=== PATIENT | female | born 1970 | race Caucasian/White ===

== ENCOUNTER → 2016-09-27 | Outpatient (CLI) | payer OTHER ==
[~2016-09-27] MED LIST: ACETAMINOPHEN325 MG PO; ARIMIDEX1 MG PO; CLARITIN10 M3 PO; HYDROCODONE-A1 UDTA4 PO; MAGNESIUM400 MG PO; NAPROSYN500 MG PO; OMEPRAZOLE20 M1 PO; OXYCODONE-ACET1 EAC1 PO; PERCOCET 10/3251 TAB PO; PHENERGAN12.5 MG PR; PHENERGAN25 M1 PO; TRAMADOL HCL50 M2 PO; WELLBUTRIN PO; WELLBUTRIN SR150 MG PO; XANAX1 MG PO; XARELTO15 MG PO; ZANAFLEX4 M1 PO; ZIAGEN300 M1; ZOFRAN8 MG PO
[2016-09-27 11:25] LABS: BASOPHIL% 0.7 % (0-2.5); EOSINOPHIL# 0.6 X10e3 (0-0.7); EOSINOPHIL% 10.4 % (0.0-7.0); HEMOGLOBIN 12.6 gm/dL (12.0-16.0); LYMPHOCYTE# 1.5 X10e3 (1.0-3.5); LYMPHOCYTE% 24.5 % (17.0-45.0); MEAN CELL VOLUME 92.5 FL (83-96); MEAN CORPUSCULAR HEMOGLOBIN 30.6 PG (28-34); MEAN PLATELET VOLUME 7.3 FL (6.5-11.5); MONOCYTE# 0.5 X10e3 (0-1.0); MONOCYTE% 7.5 % (3.0-12.0); NEUTROPHIL# 3.5 X10e3 (1.5-7.1); NEUTROPHIL% 56.9 % (40-75); PLATELET COUNT 214 X10e3 (140-420); RED BLOOD COUNT 4.11 X10e (3.90-5.30); WHITE BLOOD COUNT 6.1 X10e3 (4.0-10.5)
[2016-09-27 11:26] LABS: DIFF IND NO
[2016-09-27 12:02] LABS: ALBUMIN SERUM 3.9 g/dL (3.5-5.0); ALKALINE PHOSPHATASE 88 U/L (32-92); ALT (SGPT) 36 U/L (10-40); AST (SGOT) 31 U/L (10-42); BILIRUBIN,TOTAL 0.3 mg/dL (0.2-2.0); BLOOD UREA NITROGEN 12 mg/dL (9-23); BUN/CREATININE RATIO 17.14; CALCIUM SERUM 8.8 mg/dL (8.4-10.2); CARBON DIOXIDE 30 mmol/L (22-31); CHLORIDE 104 mmol/L (100-111); CREATININE SERUM 0.7 mg/dL (0.6-1.4); GLOM FILT RATE Estimated ABOVE60 mL/min (>60); GLUCOSE FASTING 116 mg/dL (70-110); POTASSIUM 4.3 mmol/L (3.5-5.1); PROTEIN TOTAL SERUM 6.7 g/dL (6.0-8.3); SODIUM 140 mmol/L (135-145)
== END | disposition home or self-care (01) ==
LOC: CLAB 10:41
PROVIDERS: Internal Medicine Hematology
DX: C50.012 Malignant neoplasm of nipple and areola, left female breast (principal)
CPT/HCPCS: 36415; 80053; 85025

== ENCOUNTER → 2016-10-06 | Outpatient (CLI) | payer OTHER ==
--- NOTE | ~2016-10-06 | MU ---
Unit #: [id number] #: [id number] Patient: CHIP CARROLL [id number] [address] [address] [id number] O MR#: [id number] NAME: CHIP CARROLL. : 1970 SEX: F STUDY DATE/TIME: 10/06/2016 UNIT: CN ROOM: STUDY DESCRIPTION: MUGA scan Attending Physician: Hemant Javier M.D. Referring Physician: Hemant Javier M.D. Primary Care Physician: Brandy Brooks M.D. CARDIOLOGY REPORT EXAM MUGA scan INDICATION Chemotherapy. DESCRIPTION OF PROCEDURE The patient received ehmqchyfrt-bboatxgsufeeu-jzqoqvd red blood cells, labeled in vitro, 29.2 mCi. Appropriate views were obtained in the anterior, left anterior oblique and lateral positions. FINDINGS Separation is adequate. The flow-volume loop is excellent. Ejection fraction is 57%, with appropriate mild hypokinesis noted of the septum, and apex, normal. No abnormalities on the lateral, and anterior views. IMPRESSION Normal ejection fraction prechemotherapy. Dictated by... Kushal Chaudhary/cody TD: 10/08/2016 17:03 JOB #: [id number] CARDIOLOGY REPORT X Austin Goodwin MD CARDIOLOGY REPORT
== END | disposition home or self-care (01) ==
LOC: CNUC 12:43
DX: C50.012 Malignant neoplasm of nipple and areola, left female breast (principal); R11.2 Nausea with vomiting, unspecified
CPT/HCPCS: 78472; A9560

== ENCOUNTER → 2016-10-23 | Outpatient (CLI) | payer OTHER ==
--- NOTE | ~2016-10-23 | CT55 ---
[facility] A Service of [facility] RADIOLOGY TEXT RESULTS PATIENT: CHIP CARROLL LOCATION: [facility] : 70 UNIT #: [id number] AGE: [address]: Hemant Javier MD SEX: F ORDER DR: [id number] [facility] [address] [facility]. [place], [place] [address] [id number] O MR#: [id number] Acc #: [id number] NAME: CHIP CARROLL : 1970 SEX: F STUDY DATE/TIME: 10/23/2016 11:01 UNIT: CCA ROOM: STUDY DESCRIPTION: CT Chest W Con Attending Physician: Hemant Javier M.D. Referring Physician: Hemant Javier M.D. Ordering Physician: Hemant Javier M.D. Primary Care Physician: Brandy Brooks M.D. MEDICAL IMAGING REPORT This report is preliminary unless electronic signature is present EXAM CT chest with contrast 10/23/2016 INDICATIONS Restaging breast cancer. Observation for metastatic disease. PROCEDURE Contrast-enhanced CT of the chest 100 mL of Isovue-370. This CT exam was performed with one or more of the following radiation dose reduction techniques: automatic exposure control, adjustment of mA and/or kV according to patient size, and iterative reconstruction. COMPARISON 09/08/2015 FINDINGS No suspicious pulmonary nodule. No pleural fluid or pneumothorax. No adenopathy. Previous bilateral mastectomy. No aggressive appearing bone lesion. IMPRESSION 1. No convincing evidence for metastatic disease to the chest. 2. Previous bilateral mastectomy and left axillary dissection. Dictated by... Baljit Yeboah M.D. THIS IS AN ELECTRONICALLY VERIFIED REPORT Baljit Yeboah M.D. at 10/24/2016 7:34 AM Beny TD: 10/23/2016 15:59 [facility] A Service [facility] RADIOLOGY TEXT RESULTS PATIENT: CHIP CARROLL LOCATION: [facility] : 70 UNIT #: [id number] AGE: [address]: Hemant Javier MD SEX: F ORDER DR: JOB #: [id number] MEDICAL IMAGING REPORT Page 1 of 1 COPY
--- NOTE | ~2016-10-23 | CT2 ---
[facility] RADIOLOGY TEXT RESULTS PATIENT: CHIP CARROLL [facility] 70 UNIT #: [id number] AGE: [address]: Hemant Javier MD SEX: F ORDER DR: [id number] [facility] [address] [place], [place] [address] [id number] O MR#: [id number] Acc #: [id number] NAME: CHIP CARROLL. : 1970 SEX: F STUDY DATE/TIME: 10/23/2016 11:01 UNIT: [facility] ROOM: STUDY DESCRIPTION: CT Abd and Pelv W Cont Attending Physician: Hemant Javier M.D. Referring Physician: Hemant Javier M.D. Ordering Physician: Hemant Javier M.D. Primary Care Physician: Brandy Brooks M.D. MEDICAL IMAGING REPORT This report is preliminary unless electronic signature is present EXAM CT abdomen and pelvis, with contrast. HISTORY Restaging breast cancer. Observation for metastatic disease. Patient reports mid chest pain radiating to the back since surgery on 08/31/2015. Patient has a history of previous bilateral mastectomies. TECHNIQUE Contrast-enhanced CT of the abdomen and pelvis. 100 mL of Isovue-370. This CT exam was performed with one or more of the following radiation dose reduction techniques: automatic exposure control, adjustment of mA and/or kV according to patient size, and iterative reconstruction. COMPARISON 09/08/2015 FINDINGS Refer to the separately dictated chest CT for thoracic findings. Liver enlarged, measuring 22.1 cm. Hepatic steatosis. No liver or splenic mass. The kidneys, adrenal glands, and pancreas are unremarkable. Previous cholecystectomy. There is pneumobilia similar to the previous study. Duodenal diverticula are again seen. The bowel loops are nondilated. The appendix is normal. PELVIS WITH CONTRAST: 5.5-cm fibroid in the uterus is similar. No new pelvic mass, adenopathy, or fluid. No aggressive-appearing bone lesion. IMPRESSION 1. No convincing evidence for metastatic disease in the abdomen or pelvis. [facility] A Service of [facility] RADIOLOGY TEXT RESULTS PATIENT: CHIP CARROLL LOCATION: [facility] : 70 UNIT #: [id number] AGE: [address]: Hemant Javier MD SEX: F ORDER DR: 2. Hepatomegaly with steatosis. 3. Dominant fibroid in the uterus is similar to the prior. Dictated by... Baljit Yeboah M.D. THIS IS AN ELECTRONICALLY VERIFIED REPORT Baljit Yeboah M.D. at 10/24/2016 7:35 AM Melba TD: 10/23/2016 15:53 JOB #: [id number] MEDICAL IMAGING REPORT Page 1 of 1 COPY
== END | disposition home or self-care (01) ==
LOC: CCAT 10:27
DX: C50.012 Malignant neoplasm of nipple and areola, left female breast (principal); R11.2 Nausea with vomiting, unspecified; K76.0 Fatty (change of) liver, not elsewhere classified; D25.9 Leiomyoma of uterus, unspecified; Z90.13 Acquired absence of bilateral breasts and nipples
CPT/HCPCS: 71260; 74177; Q9967

== ENCOUNTER → 2017-01-09 | Outpatient (CLI) | payer OTHER ==
[2017-01-09 13:20] LABS: ALBUMIN SERUM 3.9 g/dL (3.5-5.0); BILIRUBIN,TOTAL 0.2 mg/dL (0.2-2.0); CALCIUM SERUM 8.8 mg/dL (8.4-10.2); CREATININE SERUM 0.6 mg/dL (0.6-1.4); GLOM FILT RATE Estimated 109.3 mL/min (>60); POTASSIUM 3.7 mmol/L (3.5-5.1); PROTEIN TOTAL SERUM 7.1 g/dL (6.0-8.3)
[2017-01-09 15:17] LABS: HEMATOCRIT 36.8 % (35.0-45.0); HEMOGLOBIN 12.3 gm/dL (12.0-16.0); MEAN CELL VOLUME 91.5 FL (83-96); MEAN CORPUSCULAR HEMOGLOBIN 30.6 PG (28-34); MEAN CORPUSCULAR HGB CONC 33.4 g/dL (30-36); MEAN PLATELET VOLUME 8.1 FL (6.5-11.5); RED BLOOD COUNT 4.02 X10e (3.90-5.30); RED CELL DISTRIBUTION WIDTH 13.8 % (11.0-15.5); WHITE BLOOD COUNT 5.8 X10e3 (4.0-10.5)
== END | disposition home or self-care (01) ==
LOC: CLAB 11:19
PROVIDERS: Internal Medicine Hematology
DX: D64.9 Anemia, unspecified (principal); C50.919 Malignant neoplasm of unspecified site of unspecified female breast
CPT/HCPCS: 36415; 80053; 82728; 83540; 83550; 85027

== ENCOUNTER 2017-02-16 14:25 | Observation (INO) | payer OTHER ==
[~2017-02-16] VITALS: Ht 162.6 cm; Wt 107.6 kg
--- NOTE | ~2017-02-16 | US140 ---
[facility] A Service of [facility] RADIOLOGY TEXT RESULTS PATIENT: CHIP CARROLL LOCATION: [facility] 320-01 : 70 UNIT #: [id number] AGE: [address]: Zachariah Johnson MD SEX: F ORDER DR: [id number] [facility] [address] [place], [place] [address] [id number] I MR#: [id number] Acc #: [id number] NAME: CHIP CARROLL : 1970 SEX: F STUDY DATE/TIME: 02/16/2017 14:45 UNIT: [address] ROOM: [facility] STUDY DESCRIPTION: US UE Veins Unilat or Ltd Stdy Attending Physician: Zachariah Johnson M.D. Referring Physician: Zachariah Johnson M.D. Ordering Physician: Zachariah Johnson M.D. Primary Care Physician: Brandy Brooks M.D. MEDICAL IMAGING REPORT This report is preliminary unless electronic signature is present EXAM US UE VEINS UNILAT OR LTD STDY HISTORY Right axillary lump and pain. Pain in right axilla with palpable abnormality. Patient had left axillary lymph nodes removed 08/31/2016. FINDINGS Venous system is evaluated in the right upper extremity. There is flow and compression where appropriate in internal jugular vein and subclavian vein and brachial vein, cephalic vein and basilic veins. There is occlusive thrombus in the axillary vein. IMPRESSION Study is positive deep venous thrombosis in the right axillary vein. I have discussed the findings with Dr. Johnson over the phone. Dictated by... Marcus Thomson M.D. THIS IS AN ELECTRONICALLY VERIFIED REPORT Marcus Thomson M.D. at 02/24/2017 6:03 AM WALDO/katey TD: 02/16/2017 21:01 JOB #: [id number] MEDICAL IMAGING REPORT Page 1 of 1 COPY
--- NOTE | ~2017-02-16 | EKG ---
PATIENT: CHIP CARROLL UNIT #: [id number] Ventricular Rate: 89 BPM Atrial Rate: 89 BPM P-R Interval: 134 ms QRS Duration: 82 ms Q-T Interval: 376 ms QTC Calculation(Bezet): 457 ms P Lecompte: 10 degrees Calculated T Lecompte: 38 degrees Diagnosis Line: Normal sinus rhythm Diagnosis Line: Voltage criteria for left ventricular hypertrophy Diagnosis Line: Abnormal ECG Diagnosis Line: When compared with ECG of 21-NOV-2015 05:13, Diagnosis Line: No significant change was found Diagnosis Line: Confirmed by ALICIA CHAPIN MD ([id number]) on Diagnosis Line: 02/18/2017 11:14:44 PM INTERPRETING MD: TAVARES PETE
--- NOTE | ~2017-02-16 | CO ---
Unit #: [id number] #: [id number] Patient: CHIP CARROLL [id number] [address] [place], [place] [address] [id number] I MR#: [id number] NAME: CHIP CARROLL ROOM: 320 Age: 46 Sex: F Admission Date: 02/16/2017 : 1970 Attending Physician: Zachariah Johnson M.D. Primary Care Physician: Brandy Brooks M.D. Requesting Physician: Zachariah Johnson M.D. Consultation Date: 02/17/2017 CONSULTATION REPORT REASON FOR CONSULTATION DVT right upper extremity. HISTORY OF PRESENT ILLNESS This 46-year-old lady who has a history of 3C breast cancer, status post chemo, surgery and currently on tamoxifen, went to Dr. Trina Javier with complaint of a lump being felt in the tamez. Subsequently went and saw Dr. Zachariah Johnson who sent her for a Doppler and the Doppler showed evidence of axillary vein thrombosis, age unknown. Patient is otherwise asymptomatic. No swelling in the arms. No swelling in the neck. Chest wall discomfort, right thigh area discomfort and extreme worry that she may have clots. PAST MEDICAL HISTORY Mainly significant for breast CA, left-sided. It was a stage 3C disease and then prophylactic right-sided mastectomy. Otherwise history of hypertension, fibromyalgia, and chronic fibroid. FAMILY HISTORY Positive for a sister and paternal grandmother with ovarian cancer. SOCIAL HISTORY Nonsmoker. No alcohol usage. No drug usage. CHRONIC MEDICATIONS Prilosec, Phenergan, Xanax, Wellbutrin, Tylenol, and tamoxifen. ALLERGIES Cipro, Compazine, Bentyl, trazodone. REVIEW OF SYSTEMS Some anxiety and right-sided axillary area mild tenderness. No swelling in the arms. Otherwise six or eight systems were within normal limits on exam. I could appreciate the cord like area in his right axilla. Left arm is normal to exam. There is no palpable JVD or area of clotting. LUNGS: Clear. ABDOMEN: No organomegaly. MEDICAL SCIENTIFIC LIAISON: Grossly intact. PELVIC/BREASTS: Pelvic exam was not performed. DIAGNOSTIC STUDIES IMAGING STUDIES: CT scan of the chest was reviewed and discussed with the patient. There is no evidence of metastatic disease and ultrasound final report is still not on the chart but the preliminary showed that axillary Unit #: [id number] #: [id number] Patient: CHIP CARROLL clot. IMPRESSION This is a 46-year-old lady with a history of 3C breast cancer, status post surgery, chemotherapy, currently on tamoxifen. Started having discomfort in the right axilla and she has a clot there of undetermined age. Otherwise she is asymptomatic, currently on heparin. So at this point I discussed with her the benefits, risks, side effects of Xarelto and will start her on Xarelto 15 mg p.o. b.i.d. for 21 days, followed by 20 mg with supper, minimum of three months and I have sent all of this to Dr. Trina Javier for further followup. Dictated by... Kushal Morrow/sudheer TD: 02/17/2017 12:00 JOB #: [id number] CONSULTATION REPORT Page 1 of 1 X Jose Han MD X CONSULTATION REPORT
--- NOTE | ~2017-02-16 | CT55 ---
[facility] A Service of [facility] RADIOLOGY TEXT RESULTS PATIENT: CHIP CARROLL LOCATION: [facility] 320-01 : [birth year] UNIT #: [id number] AGE: [address]: Zachariah Johnson MD SEX: F ORDER DR: [id number] [facility] [address] [place], [place] [address] [id number] I MR#: [id number] Acc #: [id number] NAME: CHIP CARROLL : 1970 SEX: F STUDY DATE/TIME: 02/16/2017 20:26 UNIT: A U ROOM: 320 STUDY DESCRIPTION: CT Chest W Con Attending Physician: Zachariah Johnson M.D. Referring Physician: Zachariah Johnson M.D. Ordering Physician: Zachariah Johnson M.D. Primary Care Physician: Brandy Brooks M.D. MEDICAL IMAGING REPORT This report is preliminary unless electronic signature is present EXAM Chest CT 02/16 at 2026 hours INDICATIONS Sternal pain and left upper chest pain since last year. Right upper arm blood clot noted today. History of breast cancer status post bilateral mastectomy 2015. TECHNIQUE Axial images were obtained through the chest following IV contrast administration. Multiplanar reformats were obtained. Comparison made with 10/23/2016. This CT exam was performed with one or more of the following radiation dose reduction techniques: automatic control, adjustment of mA and/or kV according to patient size, and iterative reconstruction. FINDINGS Patient is status post bilateral mastectomy with a left axillary node dissection. No pleural or pericardial effusion is seen. There is no adenopathy. Lungs remain clear. No pneumothorax is seen. There are no pulmonary nodules. No suspicious osseous lesions. Upper abdomen demonstrates hepatic steatosis. There is pneumobilia again seen suggesting prior sphincterotomy. This is unchanged. Gallbladder has been removed. IMPRESSION No active disease in the chest. No evidence of metastatic disease. Patient is status post bilateral mastectomy. Dictated by... Zachariah Jarrett Jr., M.D. THIS IS AN ELECTRONICALLY VERIFIED REPORT [facility] A Service of [facility] RADIOLOGY TEXT RESULTS PATIENT: CHIP CARROLL LOCATION: [facility] 320-01 : [birth year] UNIT #: [id number] AGE: [address]: Zachariah Johnson MD SEX: F ORDER DR: Zachariah Jarrett Jr., M.D. at 02/17/2017 5:52 AM CHARLOTTE/ayaka TD: 02/17/2017 04:16 JOB #: [id number] MEDICAL IMAGING REPORT Page 1 of 1 COPY
--- NOTE | ~2017-02-16 | DS ---
Unit #: [id number] #: [id number] Patient: CHIP CARROLL [id number] [address] [place], [place] [address] [id number] I MR#: [id number] NAME: CHIP CARROLL ROOM: 320 Age: 46 Sex: F Admission Date: 02/16/2017 : 1970 Discharge Date: 02/17/2017 Attending Physician: Zachariah Johnson M.D. Referring Physician: Zachariah Johnson M.D. Primary Care Physician: Brandy Brooks M.D. DISCHARGE SUMMARY SHORT STAY SUMMARY HOSPITAL COURSE This 46-year-old patient was admitted to the hospital with right upper extremity DVT. The patient is feeling much better and will be seen by Dr. Han today. Her right upper extremity ultrasound was positive for DVT in right axillary vein. She also had a CT scan of the chest done, which did not reveal any active disease in the chest. There was no evidence of metastatic disease. Her troponin was less than 0.3. The patient is feeling much better and wants to go home. Therefore, she will be discharged after seen by Dr. Han on the treatment of his choice. RECOMMENDATIONS ON DISCHARGE 1. Discharge the patient home after seen and if okay with Dr. Han. 2. Medications: The patient is advised to continue home medications, which are as per medication reconciliation form and admission H and P. 3. The patient's additional medication for right upper extremity DVT will be as per Dr. Han. 4. Followup: The patient is advised to follow up with primary care physician in [address] Han as recommended. Dictated by... Kushal Hannon/audrey TD: 02/17/2017 11:46 JOB #: [id number] DISCHARGE SUMMARY Page 1 of 1 X Skip Mccall MD DISCHARGE SUMMARY
--- NOTE | ~2017-02-16 | HP ---
Unit #: [id number] #: [id number] Patient: CHIP CARROLL [id number] [facility] [address]. [place], [place] [address] [id number] Elle MR#: [id number] NAME: CHIP CARROLL. ROOM: 320 Age: 46 Sex: F Admission Date: 02/16/2017 : 1970 Attending Physician: Zachariah Johnson M.D. Referring Physician: Zachariah Johnson M.D. Primary Care Physician: Brandy Brooks M.D. HISTORY AND PHYSICAL CHIEF COMPLAINT Right upper extremity DVT. HISTORY OF PRESENT ILLNESS The patient is a 46-year-old female with past medical history of breast cancer, hypertension, fibromyalgia, who is being admitted from Ultrasound for the above. The patient states that she felt a "knot" in the right axillary area as well as the left axillary area about a month ago. She saw Dr. Johnson who had done her bilateral mastectomy and left axillary dissections. She actually saw him in his office on February 14, 2017. An ultrasound of the right axilla was ordered. I was called from Ultrasound due to deep venous thrombosis in the right axillary vein. She is being admitted to [facility] for evaluation and further treatment. The patient states that she has had chest wall pain since surgery. She denies shortness of breath and she has had nausea. She denies any vomiting. No diarrhea. No urinary symptoms. PAST MEDICAL HISTORY 1. Admission to [facility] November 19-2015 for intractable nausea, vomiting and diarrhea. 2. Breast cancer, invasive ductal carcinoma, status post mastectomy and lymph node dissection. The patient apparently had a prophylactic mastectomy of the right breast. She is followed by Dr. Javier. Her last chemotherapy was in March of 2016. Last radiation treatment was in May of 2016. She has been on Herceptin and tamoxifen and is currently receiving Arimidex. She is followed by Dr. Javier. 3. Fibromyalgia. 4. Hypertension. PAST SURGICAL HISTORY 1. Bilateral mastectomy. 2. Left axillary dissection. 3. Port placement. 4. Cholecystectomy. 5. Tonsillectomy. SOCIAL HISTORY The patient has a caregiver. She walks with a cane. There is no tobacco or alcohol use. FAMILY HISTORY Unit #: [id number] #: [id number] Patient: CHIP CARROLL Family history is notable for her sister and paternal grandmother having ovarian cancer. ALLERGIES Trazodone, ciprofloxacin, Compazine, Bentyl. HOME MEDICATIONS Per the discharge summary from October of 2015 include Xanax, Phenergan, Wellbutrin, Tylenol, Percocet, Prilosec. Home medications will need to be reviewed and verified. REVIEW OF SYSTEMS A complete review of systems is negative except as indicated in the HPI. DIAGNOSTIC STUDIES IMAGING: Ultrasound of the right axilla was positive for a right axillary vein thrombosis. No other labs have been done. PHYSICAL EXAMINATION VITAL SIGNS: Pending. GENERAL: The patient is a very pleasant female who is awake and alert, in no acute distress. HEENT: The head is atraumatic. Mucous membranes are moist. NECK: Neck is supple. Trachea is midline. CARDIOVASCULAR: Regular rate and rhythm. LUNGS: Lungs are clear to auscultation bilaterally with no increased work of breathing. ABDOMEN: Abdomen is soft, nontender, with bowel sounds present in all four quadrants. EXTREMITIES: Nontender, with no pedal edema. NEUROLOGIC: The patient is awake and alert. She follows commands. PSYCHIATRIC: Mood and affect are normal. The patient is cooperative. SKIN: Skin of examined areas is warm and dry. The patient has had bilateral mastectomy with well-healed surgical scars. ASSESSMENT The patient is 46-year-old female with: 1. Right upper extremity deep vein thrombosis. 2. Breast cancer, status post mastectomy, left axillary dissection, radiation and chemotherapy, followed by Dr. Javier. 3. Hypertension. 4. Fibromyalgia. PLAN 1. Admit for observation to intermediate level. 2. Healthy heart diet. 3. Consult Dr. Han regarding DVT. I have spoken with him regarding this patient. He agrees to see her in consultation. 4. High intensity heparin drip with initial bolus and bolus as indicated per protocol for DVT. 5. CT of the chest with IV contrast for further evaluation of right upper extremity DVT. 6. STAT labs including CBC, comprehensive metabolic panel, INR. 7. EKG and cardiac enzymes now. 8. Repeat labs in the morning. 9. Additional workup and consultants based on above. Unit #: [id number] #: [id number] Patient: CHIP CARROLL Dictated by Kushal Leonard/cody TD: 02/16/2017 18:18 JOB #: [id number] HISTORY AND PHYSICAL Page 1 of 1 X Estrellita Boone MD HISTORY AND PHYSICAL
[~2017-02-16 14:25] MED LIST changes: -ARIMIDEX1 MG PO; -CLARITIN10 M3 PO; -OXYCODONE-ACET1 EAC1 PO; -WELLBUTRIN SR150 MG PO; -XARELTO15 MG PO; -ZOFRAN8 MG PO
[2017-02-16] MEDS ORDERED: WELLBUTRIN SR150 MG PO (18:46)
[2017-02-16] MEDS ORDERED: OXYCODONE-ACET1 EAC1 PO (18:47)
[2017-02-16] MEDS ORDERED: ZOFRAN8 MG PO (18:47)
[2017-02-16] MEDS ORDERED: CLARITIN10 M3 PO (18:48)
[2017-02-16] MEDS ORDERED: ARIMIDEX1 MG PO (18:48)
[2017-02-16 18:55] LABS: HEMATOCRIT 40.3 % (35.0-45.0); HEMOGLOBIN 13.4 gm/dL (12.0-16.0); MEAN CELL VOLUME 92.3 FL (83-96); MEAN CORPUSCULAR HEMOGLOBIN 30.7 PG (28-34); MEAN CORPUSCULAR HGB CONC 33.2 g/dL (30-36); MEAN PLATELET VOLUME 7.5 FL (6.5-11.5); RED BLOOD COUNT 4.37 X10e (3.90-5.30); RED CELL DISTRIBUTION WIDTH 13.6 % (11.0-15.5); WHITE BLOOD COUNT 8.9 X10e3 (4.0-10.5)
[2017-02-16 19:23] LABS: PROTHROMBIN TIME (PATIENT) 10.4 SECONDS (10.0-11.7)
[2017-02-16 19:28] LABS: ALBUMIN SERUM 3.9 g/dL (3.5-5.0); BILIRUBIN,TOTAL 0.1 mg/dL (0.2-2.0); BUN/CREATININE RATIO 12.5; CALCIUM SERUM 8.7 mg/dL (8.4-10.2); CREATININE SERUM 0.8 mg/dL (0.6-1.4); GLOM FILT RATE Estimated 88.5 mL/min (>60); POTASSIUM 3.7 mmol/L (3.5-5.1); PROTEIN TOTAL SERUM 7.2 g/dL (6.0-8.3)
[2017-02-17 01:55] LABS: CK TOTAL 21 IU/L (26-140)
[2017-02-17 02:04] LABS: HEMATOCRIT 38.6 % (35.0-45.0); HEMOGLOBIN 12.8 gm/dL (12.0-16.0); MEAN CELL VOLUME 91.5 FL (83-96); MEAN CORPUSCULAR HEMOGLOBIN 30.4 PG (28-34); MEAN CORPUSCULAR HGB CONC 33.3 g/dL (30-36); MEAN PLATELET VOLUME 7.7 FL (6.5-11.5); RED BLOOD COUNT 4.21 X10e (3.90-5.30); RED CELL DISTRIBUTION WIDTH 13.7 % (11.0-15.5); WHITE BLOOD COUNT 9.7 X10e3 (4.0-10.5)
[2017-02-17 02:22] LABS: ALBUMIN SERUM 3.9 g/dL (3.5-5.0); BILIRUBIN,TOTAL 0.1 mg/dL (0.2-2.0); BUN/CREATININE RATIO 12.5; CALCIUM SERUM 8.7 mg/dL (8.4-10.2); CREATININE SERUM 0.8 mg/dL (0.6-1.4); GLOM FILT RATE Estimated 88.5 mL/min (>60); PROTEIN TOTAL SERUM 7.2 g/dL (6.0-8.3)
[2017-02-17 02:25] LABS: PROTHROMBIN TIME (PATIENT) 10.8 SECONDS (10.0-11.7)
[2017-02-17 06:39] LABS: CK TOTAL 19 IU/L (26-140)
[2017-02-17] MEDS ORDERED: XARELTO15 MG PO (13:13)
== END 2017-02-17 14:26 | disposition home or self-care (01) | DRG 301 ==
LOC: CGUS 14:25 → C3A PCU 17:00 → CGUS 17:51 → C3A PCU 02-17 14:26
PROVIDERS: Family Medicine; Specialist
DX: I82.621 Acute embolism and thrombosis of deep veins of right upper extremity (principal); Z85.3 Personal history of malignant neoplasm of breast; I10 Essential (primary) hypertension; M79.7 Fibromyalgia; Z90.13 Acquired absence of bilateral breasts and nipples; Z79.899 Other long term (current) drug therapy
CPT/HCPCS: 71260; 80053; 82550; 84484; 85027; 85610; 85730; 93005; 93971; G0378; J1642; J1644; Q9967

== ENCOUNTER → 2017-03-07 | Outpatient (CLI) | payer OTHER ==
[~2017-03-07] MED LIST changes: +ARIMIDEX1 MG PO; +CLARITIN10 M3 PO; +OXYCODONE-ACET1 EAC1 PO; +WELLBUTRIN SR150 MG PO; +XARELTO15 MG PO; +ZOFRAN8 MG PO
--- NOTE | ~2017-03-07 | CT2 ---
[facility] A Service of [facility] RADIOLOGY TEXT RESULTS PATIENT: CHIP CARROLL LOCATION: [facility] : 70 UNIT #: [id number] AGE: [address]: Hemant Javier MD SEX: F ORDER DR: [id number] [facility] [address] [place], [place] [address] [id number] O MR#: [id number] Acc #: [id number] NAME: CHIP CARROLL : 1970 SEX: F STUDY DATE/TIME: 03/07/2017 10:06 UNIT: [facility] ROOM: STUDY DESCRIPTION: CT Abd and Pelv W Cont Attending Physician: Hemant Javier M.D. Referring Physician: Hemant Javier M.D. Ordering Physician: Hemant Javier M.D. Primary Care Physician: Brandy Brooks M.D. MEDICAL IMAGING REPORT This report is preliminary unless electronic signature is present EXAM CT of the abdomen and pelvis with contrast. INDICATIONS Breast cancer. Observe for metastatic disease. Also right lower quadrant abdominal pain for a week. COMPARISON STUDIES 10/23/2016 TECHNIQUE The patient was given 100 mL of Isovue-370 and axial 5 mm images were obtained through the abdomen and pelvis. Sagittal and coronal reconstructions were generated. This CT exam was performed with one or more of the following radiation dose reduction techniques: automatic exposure control, adjustment of mA and/or kV according to patient size, and iterative reconstruction. FINDINGS Lung bases are clear. The liver shows mild diffuse fatty change. There is air in the biliary system. The spleen, pancreas, adrenal glands and kidneys are normal. The aorta is normal in size and there is no adenopathy. The bowel is normal. The appendix is normal. The bladder is normal. The uterus has been removed and there are no adnexal masses. The bones are unremarkable. IMPRESSION 1. Normal appendix. 2. Stable mild fatty change throughout the liver. 3. Gallbladder has been removed and there is air in the biliary system which is unchanged from prior study. 4. Previous hysterectomy. [facility] A Service of [facility] RADIOLOGY TEXT RESULTS PATIENT: CHIP CARROLL LOCATION: [facility] : 70 UNIT #: [id number] AGE: [address]: Hemant Javier MD SEX: F ORDER DR: 5. Otherwise, normal. Dictated by... Marcus Thomson M.D. THIS IS AN ELECTRONICALLY VERIFIED REPORT Marcus Thomson M.D. at 03/07/2017 9:03 PM Paloma TD: 03/07/2017 19:25 JOB #: [id number] MEDICAL IMAGING REPORT Page 1 of 1 COPY
[2017-03-07 10:01] LABS: POC - CREATININE 0.72 mg/dL (0.44-1.03); POC - GFR >60.0 mL/min (>60)
== END | disposition home or self-care (01) ==
LOC: CCAT 09:24
PROVIDERS: Internal Medicine Hematology
DX: C50.012 Malignant neoplasm of nipple and areola, left female breast (principal); K76.0 Fatty (change of) liver, not elsewhere classified; Z90.49 Acquired absence of other specified parts of digestive tract; Z90.710 Acquired absence of both cervix and uterus
CPT/HCPCS: 74177; 82565; Q9967